=== PATIENT | male | born 1990 ===

== ENCOUNTER 2017-11-26 07:30 | Inpatient (IN) | payer OTHER ==
[2017-11-12 09:25] VITALS: BMI 38.6
[2017-12-23] MEDS ORDERED: Propofol 10 mg/ml 1,000 MG/100 ML VIAL ONE ×2 (07:07→07:36)
[2017-12-23] MEDS ORDERED: Lidocaine Hydrochloride 0 ML INJ ONE ×2 (07:27→07:41)
[2017-12-23] MEDS ORDERED: Midazolam 2 MG/2 ML VIAL ONE (07:27)
[2017-12-23] MEDS ORDERED: Succinylcholine Chloride 20 mg/ml Syr (5 ml) IV ONE (07:27)
[2017-12-23] MEDS ORDERED: Propofol 10 mg/ml Inj (20 ML) ONE ×2 (07:27→07:53)
[2017-12-23] MEDS ORDERED: Lidocaine 4% (Laryng-O-Jet) Kit MM ONE (07:28)
[2017-12-23] MEDS ORDERED: Bupivacaine Liposomal Inj 20 ml INJ ONE (07:30)
[2017-12-23] MEDS ORDERED: ceFAZolin IV 1 gm in Dextrose 1 GM/50 ML BAG IVPB ONE ×2 (07:39→08:15)
[2017-12-23] MEDS ORDERED: Bacitracin Ointment 30 GM TUBE ONE (07:42)
[2017-12-23] MEDS ORDERED: Absorbable Gelatin Sponge Size 12-7 ONE (07:43)
[2017-12-23] MEDS ORDERED: Absorbable Gelatin Sponge Size 100 ONE (07:43)
[2017-12-23] MEDS ORDERED: Thrombin Topical 20,000 Intl Units Spray Kit TOP ONE (07:44)
[2017-12-23] MEDS ORDERED: Thrombin Topical 5,000 Int Units Spray Kit ONE ×2 (07:48→07:56)
[2017-12-23] MEDS ORDERED: ePHEDrine 50 mg/ml Inj ONE (07:53)
[2017-12-23] MEDS ORDERED: Phenylephrine 10 mg/ml Inj ONE (07:53)
[2017-12-23] MEDS ORDERED: Sodium Chloride 0.9% 40 ML IV ONE (07:56)
[2017-12-23] MEDS ORDERED: Bacitracin 50,000 UNIT in Sodium Chloride 0.9% Irrig 1,000 ML IR SCH (08:00)
[2017-12-23] MEDS ORDERED: Rocuronium 10 mg/ml (5 ml) ONE (08:32)
[2017-12-23] MEDS ORDERED: Sodium Chloride 0.9% 20 ML IV ONE (09:03)
[2017-12-23] MEDS ORDERED: Lidocaine/Epinephrine 1% 1:100000 10 ML IJ ONE (09:03)
[2017-12-23] MEDS ORDERED: Neostigmine Methylsulfate 3mg/3ml Syringe IV ONE (12:06)
[2017-12-23] MEDS: HYDROmorphone 0.5 mg/0.5 ml ISec IVP PRN ×4 (12:31→13:05)
[2017-12-23] MEDS ORDERED: Oxycodone/Acetaminophen 5/325 mg Tab PO ONE (15:15)
--- NOTE | 2017-12-23 15:28 | RAD ---
PROCEDURE: HISTORY: As Above COMPARISON: None TECHNIQUE: Total fluoroscopic time utilized during the procedure: 47.6 seconds. Total dose 47.66 mGy cm squared FINDINGS: Submitted images from the current procedure: 15 Please refer to the physician's notes performing the procedure. IMPRESSION: Less than 1 hour fluoroscopic time utilized during performance of the procedure
[2017-12-23] MEDS ORDERED: HYDROmorphone 0.5 mg/0.5 ml ISec IVP ONE (16:20)
[2017-12-23] MEDS: oxyCODONE 20 mg ER Tab (oxyCONTIN) PO SCH (19:45)
[2017-12-23] MEDS: Potassium Ch 20mEq in D5-1/2NS 1,000 ML IV SCH (23:15)
[2017-12-23] MEDS: Oxycodone/Acetaminophen 5/325 mg Tab PO PRN (23:44)
[2017-12-24] MEDS: Oxycodone/Acetaminophen 5/325 mg Tab PO PRN ×5 (03:23→22:13)
--- NOTE | 2017-12-24 07:37 | OP ---
Copied To: Darwin Brown MD Attending MD: Darwin Brown MD PROCEDURE DATE: 12/23/2017 PREOPERATIVE DIAGNOSIS: Lumbar disk derangement with chronic low back pain radiculopathy. POSTOPERATIVE DIAGNOSIS: Lumbar disk derangement with chronic low back pain radiculopathy. PROCEDURE: L5-S1 decompression discectomy interbody fusion, segmental pedicle screw fixation and posterolateral fusion of the iliac autograft. SURGEON: Darwin Brown MD CO-SURGEON: Jignesh Arnett MD. ANESTHESIA: General endotracheal. ESTIMATED BLOOD LOSS: 375 mL, 125 mL returned via Cell Saver. COMPLICATIONS: None. JUSTIFICATION: The patient is status post an accident suffering with severe low back pain with associated radiculopathy, failed rather extensive conservative treatment. MRI documented significant collapse and herniation of the L5-S1 disc. All cephalad disks were relatively within normal limits. The patient was offered operative intervention by discectomy fixation and fusion. The nature of this procedure, alternatives, the rational behind it, details of the procedure itself, potential risks and complications, realistic chance of success, recovery time, rodent exterminator outlook were all discussed with him at length. All his questions were answered. He fully understood all the above and elected to proceed as offered. DESCRIPTION OF PROCEDURE: The patient was taken to the operating room. He was hooked up to neurophysiological monitoring. Intubated and anesthetized. He was placed on a Tono frame in a prone position. Care was taken to protect his face, eyes, endotracheal tube, and all bony prominences. The entire low back was then scrubbed with acetone, and scrubbed, painted, and draped in usual sterile manner. Incision was localized with lateral fluoroscopy and traced out from the spinous process from L4 down to the upper sacrum. This was infiltrated with local anesthetic. Incision was made with 10-blade knife, carried down to the level of the fascia. The Bovie cautery was use to strip the paraspinal muscles off the spinous processes and lamina of L5-S1. Confirmatory x-ray was taken. The exposure was widened out laterally and bilaterally with the Bovie and Myles elevators to expose the transverse processes at L5 and sacral ala bilaterally. Bleeding controlled throughout with the Bovie cautery and thrombinated Gelfoam. At this point, we performed bone harvestation. A 5-gauge trocar was inserted directly into the right superior posterior iliac crest, approximately 90 mL of bone marrow aspirated. This was then spun down to obtain the bone marrow mesenchymal cells, later used in the grafting. At this point, we began the decompression by removing the spinous processes of S1 and the inferior spinous processes of L5. Leksell and high speed drill were used to thin down these elements to begin a medial facetectomy. Various sized Kerrison rongeurs were then used to perform to complete the central laminotomy, and the medial facetectomy, we exposed the lateral disc, and the traversing one root bilaterally. Foraminotomy was performed bilaterally at the exiting L5 nerve root. Bleeding control throughout this point with bipolar cautery and thrombinated Gelfoam. At this point, the left S1 nerve root gently retracted medially. Disk was then incised. It was quite collapsed. We used an 8 mm shaver to open up the disk space, and then two pituitary rongeurs to remove the disk material. We were only able to use up to a 10 mm scraper because of the severe collapse of the disk. We did check an x-ray with 10 distractor and placed before using the 10 mm scraper, and we certainly chose not to proceed further than 10 mm. At this point, we used various size and shape curettes to remove all further soft tissue and disk material from the disk space, and perform the decortication of the endplates above and below. This identical procedure was then performed on the right side, after which the disc space was tacked with bone grafting material, which included chopped up products of decompression, additional allografts as well as mesenchymal cell impregnated collagen hydroxyapatite sponges. Following this, we placed a 10 x 9 mm carbon fiber fusion cage, tapped into the interspace until it is well-seated and countersunk. This was confirmed visually and fluoroscopically. We then performed the identical fusion on the left side and confirmed that back graft was also well seated and countersunk. At this point, we used high speed drills to decorticate lateral gutters, which included transverse process, lateral pars, facet, lateral facet, and the sacral ala. We then performed the placement of the pedicular screws. Using contralateral fluoroscopy, we identified the pedicular entrance, both visually and fluoroscopically, drilled the cortical surface, passed a gear shift down the barrel of the pedicle, and then placed the appropriate sized screw. Additionally, the gear shift, and the screws were all stimulated with the electrical current while monitoring lower extremity EMG. No screw elicited any EMG activity below a threshold of 20 milliamps. Using the technique, 6 diameter screws were placed bilaterally at L5 at 40 and 60 mm length, and at S1, 7 mm diameter screws were placed at 40 mm length. Both lateral and AP fluoroscopy confirmed excellent position of all four screws. We then placed the appropriate length titanium rods into the two screw head receptacles on each side. We then placed locking nuts and torque-wrenched tight, and lastly, placed a cross connector and points as well. Final AP and lateral x-ray confirmed super position of the entire construct. At this point, we tacked all bone grafts liberally into the lateral gutters as described previously. All further bone grafting material was used and packed to achieve the posterolateral fusion. We then ensured, there was no bone graft or any other foreign matter in the epidural or peridural space. This was gently irrigated with antibiotic solution and two layers of Gelfoam placed in the posterior epidural space. At this point, the retractors were removed. The muscle were re-approximated using 0 Vicryl. The fascia was closed using a tight interrupted 0 Vicryl stitch. The wound again copiously irrigated with antibiotic solution. Paraspinal muscles were infiltrated with a long lasting local anesthetic. The subcu closed in two separate layers with interrupted inverted 2-0 Vicryl. Skin closed with running Monocryl stitch, benzoin, and Steri-Strips. The dressing was applied. The patient was turned back on to a bed in a supine position, easily extubated. He was noted to be moving his lower extremities well on his way to recovery room. All counts were correct. Neurophysiological monitoring with the exception couple of small bursts of EMG activity while retracting the nerve route was stable. There were no complications. Counts were correct. Darwin Brown MD
--- NOTE | 2017-12-24 07:38 | HP ---
The patient is going to be admitted for surgery on 12/23/2017. HISTORY OF PRESENT ILLNESS: The patient is a 27-year-old gentleman injured severe on a job accident that occurred on 08/22/2014, i.e., over three years ago. 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 He began to develop severe back pain after this accident. He injured his knee and had surgery as well. He was treated extensive physiotherapy over several years. He has what he believes three or four injections, which each one helped him approximately three days. He had some type of percutaneous procedure performed, which helped him for approximately a week and then . He is suffering a severe pain in the low lumbar area. The pain radiates into both buttocks and down both posterior thighs into his calves and heels. It is worse on the right side. His overall level of pain is 8 on a 0 to 10 scale. He takes several Percocet a day. He has dysesthesias in the right leg as well. He has been unable to return to work. PAST MEDICAL HISTORY: Otherwise, negative. ALLERGIES: DENIES ANY ALLERGIES TO MEDICATIONS. SOCIAL HISTORY: He smokes two or three cigarettes a day. He did not drink. PHYSICAL EXAMINATION: NEUROLOGIC: He has 5/5 strength throughout. Sensory exam is within normal limits. Reflexes are 1+ in the left knee, absent in the right; absent in the right ankle, 1+ in the left ankle. Straight leg raising on the right, produces pain in the posterior side, approximately 35 degrees. He has a fair amount of lumbosacral junction. Range of motion is limited to extension, and markedly limited to flexion which is quite painful. DIAGNOSTIC STUDIES: MRI of the LS spine documenting markedly collapsed disks and prolapsed disk in the L5-S1. It is probably half the typical height. He has a large central herniation directly into the thecal sac with some extension towards the right abutting the S1 nerve root. There was bilateral foraminal stenosis. IMPRESSION AND PLAN: The patient is suffering with an ongoing diskogenic low back pain syndrome, which is associated by S1 radiculopathy, failed rather extensive conservative treatment over three year period, and he was offered the possibility of operative intervention by diskectomy, interbody fusion, and segmental fixation. The nature of this procedure, the rationale behind it, alternatives, potential risks, complications, realistic chance of success and recovery time were discussed with him at length. All his questions were answered. He fully understood all the above and he elected to proceed as offered. He is now being admitted for this procedure. Darwin Brown MD
[2017-12-24] MEDS: Potassium Ch 20mEq in D5-1/2NS 1,000 ML IV SCH ×3 (09:13→20:31)
[2017-12-24] MEDS: oxyCODONE 20 mg ER Tab (oxyCONTIN) PO SCH ×2 (10:26→21:29)
[2017-12-24] MEDS ORDERED: oxyCODONE 20 mg ER Tab (oxyCONTIN) PO ONE (11:03)
--- NOTE | 2017-12-24 11:10 | CP.PCM.PN ---
Subjective - Date & Time of Evaluation Date of Evaluation: 12/24/17 Time of Evaluation: 11:09 - Subjective Subjective: pod1 pt c/o sever back pain needs inc in pain meds reports nmbness in both legs entire legs exam finds 5/5 with no sensory deficts to pin will inc narcotics and attempt adv act Objective - Vital Signs/Intake and Output Vital Signs (last 24 hours): Temp Pulse Resp BP Pulse Ox 98.5 F 90 20 135/68 96 12/24/17 07:25 12/24/17 07:25 12/24/17 07:25 12/24/17 07:25 12/24/17 07:25 Intake and Output: 12/24/17 12/24/17 06:59 18:59 Intake Total 1250 Output Total 2125 Balance -875 - Medications Medications: Current Medications Acetaminophen (Tylenol 325mg Tab) 650 mg PO Q6 PRN PRN Reason: Fever >100.4 F Last Admin: 12/24/17 04:31 Dose: 650 mg Docusate Sodium (Colace) 100 mg PO BID [facility] [place] Last Admin: 12/24/17 10:26 Dose: 100 mg Potassium Chloride/Dextrose/Sod Cl (Potassium Chl 20 Meq In D5-1/2ns) 1,000 mls @ 100 mls/hr IV .Q10H [facility] [place] Last Admin: 12/24/17 09:13 Dose: Not Given Ondansetron HCl (Zofran Tab) 4 mg PO Q6 PRN PRN Reason: Nausea/Vomiting Oxycodone HCl (Oxycontin Extended Release Tab) 20 mg PO Q12 [facility] [place] Last Admin: 12/24/17 10:26 Dose: 20 mg Oxycodone HCl (Oxycontin Extended Release Tab) 40 mg PO Q12 [facility] [place] Oxycodone/Acetaminophen (Percocet 5/325 Mg Tab) 1 tab PO Q4H PRN PRN Reason: Pain, moderate (4-7) Stop: 12/26/17 23:01 Last Admin: 12/24/17 07:59 Dose: 1 tab Pneumococcal Polyvalent Vaccine (Pneumovax 23 Vaccine) 0.5 ml IM .ONCE ONE Stop: 12/25/17 12:01
--- NOTE | 2017-12-24 20:43 | OP ---
Copied To: Jignesh Arnett MD Attending MD: Jignesh Arnett MD PROCEDURE DATE: 12/23/2017 PREOPERATIVE DIAGNOSES: Central herniation with disk derangement, L5-S1. POSTOPERATIVE DIAGNOSES: Central herniation with disk derangement, L5-S1. OPERATIONS: 1. Posterior lumbar interbody and lateral fusion, L5-S1. 2. Use of intervertebral devices. 3. Use of non-segmental spinal instrumentation. 4. Use of autograft by means of bone marrow aspiration. SURGEON: Jignesh Arnett MD AND Darwin Brown MD ANESTHESIA General endotracheal tube intubation. DESCRIPTION OF PROCEDURE: The patient was brought into the operating room. General anesthesia was achieved. Intravenous antibiotics were administered and spinal cord monitor leads were placed throughout the patient's body. Real time monitoring was done by refrigeration service technician in the room. Remote monitoring was done by physician as well. Sequential compression boots were placed to use the patient's legs. After the antibiotics were administered, a Byrne catheter was inserted. The patient was then placed on the operating table in the prone position on a Tono frame keeping his abdomen free from pressure anteriorly. Care was taken to protect his elbows and knees from pressure points. A Steri-Drape was used to seal off the patient's perineal region from the operative field and his back was sterilely prepped and draped. The level of the incision was noted under fluoroscopy and infiltrated with lidocaine with epinephrine. An incision was made in the midline and taken down through subcutaneous tissue using sharp and blunt dissection. Hemostasis was achieved using electrocautery. The fascia was divided, stripped laterally off the spinous processes and lamina out to the level of the L5 transverse process on each side as well as sacral ala on each side. Fluoroscopic views confirmed with the appropriate level. Soft tissue attachments were cleared from the bony landmarks using electrocautery and Myles elevators. A Leksell rongeur was used to remove the spinous processes and thinned down to lamina and laminectomy carried out in a caudocephalad fashion using Kerrison rongeurs. This was done in the midline first and then out laterally to each side until we could easily pass the broach at the level of the disk space, indicative of enough space to subsequently pass the cages. Foraminotomies were carried out until we could easily pass a Potter tool out each neural foramina above and below on each side. Hemostasis achieved with bipolar cautery as well as thrombinated Gelfoam powder. At that time, a trocar was placed in the posterior right ilium and 90 mL of bone marrow aspirate was obtained. This was sterilely passed off to the refrigeration service technician to process it through the harvest system and return the collected mesenchymal stem cells back to the OR table. The stem cells were used to soak strips and cubes of Conform hydroxyapatite sponge as well as process through the IC chamber. The IC chamber bone along with the patient's laminar bone and Optium putty were combined to make a good bone grafting substrate. The thrombinated Gelfoam powder was used to hemostasis at the donor site. The thecal sac was gently retracted and the annulus incised on left side L5-S1. It was difficult entering the disk space due to the significant collapse and osteophyte formation. A pituitary rongeur and endplate soy up to and including a size 10 were used to remove the disk material from within the disk space. A ring and spoon curettes were then used to remove any remaining tissue from the endplates. We then moved to the right side where again the thecal sac was retracted and the annulus was incised and any remaining disk material was removed with the endplate soy up to and including a size 10 along with the pituitary rongeur, the ring and spoon curettes. The bone grafting substrate was then packed into the disk space along with the marrow soaked cubes. A 9 x 10 cage packed with the graft was then tamped into place and countersunk. We moved back to the left side and removed any remaining disk material that appeared to have been heaped up dorsally. More bone grafting substrate and marrow soak cubes were packed in the disk space and another 9 x 10 cage packed with graft was tamped into place and countersunk. Visually, they appeared to be in good position. Baseline stimulation of the nerve roots was done and the system was working and we confirmed laterality as well. A high-speed drill was used to decorticate the L5-S1 facet joints on each side along with the sacral ala and the transverse processes of L5 on each side as well. Under fluoroscopic guidance, the entry point for the right L5 pedicle was noted. Gearshift 2 was used to create a channel through the pedicle and the bony integrity confirmed with a ball-tip probe. A 6 x 50 mm Expedient screw was then inserted. In similar fashion on the left side, a high-speed drill was used to create the entry point and the gearshift 2 was used to create a channel for the screw. Once the ball-tip probe confirmed bony integrity throughout, a 40 mm x 6 screw was inserted. Stimulation of the gearshift 2 on each side as well as the shank on top of each screw revealed no electrophysiologic abnormalities. We then moved down the sacral level where again under fluoroscopic guidance, the entry point on each side was noted and marked with the high-speed drill. The gearshift 2 was used to create the particular channel on each side and the ball-tip probe used to confirm bony integrity. A 7 x 40 mm Expedient screw was inserted on each side and again stimulation of the tool on each side as well as each screw revealed no abnormalities. AP views were taken which confirmed good position of the screws as well. A 45-mm precut lordotic rods were then used to connect each pair of screws and the caps applied, tightened, and torqued. The midline was inspected for any debris and irrigated. Hemostasis achieved with thrombinated Gelfoam powder and a large piece of solid Gelfoam was used to cover the exposed neural elements. A #7 Matrix cross-link was then applied to the 2 rods to add rotational stability. The remaining marrow soaks strips of Conform along with the remaining bone grafting substrate was then packed laterally to bridge the decorticated transverse processes of sacral ala as well as into the decorticated facet joint. Final AP and lateral fluoroscopic view showed excellent position of the hardware. The wound was then closed in layers with interrupted sutures of 0 Vicryl for the muscle and fascia. The subcutaneous tissue was copiously irrigated with antibiotic solution. 20 mL of Exparel diluted with normal saline as well as 20 mL of 0.5% Marcaine were injected in the paraspinal tissues to help with postoperative pain relief. The subcutaneous tissue was closed using interrupted sutures of 2-0 Vicryl and the skin was approximated with running subcuticular suture of 3-0 Monocryl. Steri-Strips and sterile dressing were applied. The patient was then gently transferred back onto his bed in the supine position. He was awakened and extubated. He was taken to recovery room in stable condition, having tolerated the procedure well. Estimated blood loss was 400 mL. He received 2 liters of crystalloid during the operation and 125 mL back from the Cell Saver. He was actually moving all extremities at time of his transfer and no permanent electrophysiologic abnormalities were noted at the completion of the case. Jignesh Arnett MD
[2017-12-25] MEDS: oxyCODONE 20 mg ER Tab (oxyCONTIN) PO SCH ×5 (00:48→22:03)
[2017-12-25] MEDS: Potassium Ch 20mEq in D5-1/2NS 1,000 ML IV SCH (00:51)
--- NOTE | 2017-12-25 10:31 | CP.PCM.PN ---
Subjective - Date & Time of Evaluation Date of Evaluation: 12/25/17 Time of Evaluation: 10:30 - Subjective Subjective: c/o incisional pain no motor sensory deficts sttod yesterday need to ambulate today Objective - Vital Signs/Intake and Output Vital Signs (last 24 hours): Temp Pulse Resp BP Pulse Ox 101.8 F H 98 H 20 113/72 99 12/25/17 07:35 12/25/17 07:35 12/25/17 07:35 12/25/17 07:35 12/25/17 07:35 Intake and Output: 12/25/17 12/25/17 06:59 18:59 Intake Total 1200 Output Total 350 Balance 850 - Medications Medications: Current Medications Acetaminophen (Tylenol 325mg Tab) 650 mg PO Q6 PRN PRN Reason: Fever >100.4 F Last Admin: 12/24/17 04:31 Dose: 650 mg Docusate Sodium (Colace) 100 mg PO BID [facility] Last Admin: 12/24/17 20:34 Dose: 100 mg Potassium Chloride/Dextrose/Sod Cl (Potassium Chl 20 Meq In D5-1/2ns) 1,000 mls @ 100 mls/hr IV .Q10H [facility] Last Admin: 12/25/17 00:51 Dose: 100 mls/hr Ondansetron HCl (Zofran Tab) 4 mg PO Q6 PRN PRN Reason: Nausea/Vomiting Oxycodone HCl (Oxycontin Extended Release Tab) 20 mg PO Q12 [facility] Last Admin: 12/24/17 21:29 Dose: 20 mg Oxycodone HCl (Oxycontin Extended Release Tab) 40 mg PO Q12 [facility] Last Admin: 12/25/17 00:48 Dose: 40 mg Oxycodone/Acetaminophen (Percocet 5/325 Mg Tab) 1 tab PO Q4H PRN PRN Reason: Pain, moderate (4-7) Stop: 12/26/17 23:01 Last Admin: 12/24/17 22:13 Dose: 1 tab Pneumococcal Polyvalent Vaccine (Pneumovax 23 Vaccine) 0.5 ml IM .ONCE ONE Stop: 12/25/17 12:01
[2017-12-25] MEDS ORDERED: Pneumococcal 23-Valent Vaccine IM ONE (12:00)
[2017-12-25] MEDS: Oxycodone/Acetaminophen 5/325 mg Tab PO PRN ×3 (14:13→22:24)
[2017-12-26] MEDS: Oxycodone/Acetaminophen 5/325 mg Tab PO PRN ×4 (02:29→16:15)
[2017-12-26] MEDS: oxyCODONE 20 mg ER Tab (oxyCONTIN) PO SCH (09:30)
--- NOTE | 2017-12-26 14:17 | CP.PCM.PN ---
Subjective - Date & Time of Evaluation Date of Evaluation: 12/26/17 Time of Evaluation: 14:15 - Subjective Subjective: SPINE - POD #3 Pt OOB in chair. Amb 150' w RW today in therapy. Lives in elevator apt. Would like to go home. VSS. Temp 99. Neuro grossly intact. Dressing clean and dry. Plan: d/c to home. Call office for f/u appt. Objective - Vital Signs/Intake and Output Vital Signs (last 24 hours): Temp Pulse Resp BP Pulse Ox 99.8 F H 85 18 116/69 97 12/26/17 07:30 12/26/17 07:30 12/26/17 07:30 12/26/17 07:30 12/26/17 07:30 Intake and Output: 12/26/17 12/26/17 06:59 18:59 Output Total 1000 Balance -1000 - Medications Medications: Current Medications Acetaminophen (Tylenol 325mg Tab) 650 mg PO Q6 PRN PRN Reason: Fever >100.4 F Last Admin: 12/26/17 07:15 Dose: 650 mg Docusate Sodium (Colace) 100 mg PO BID [facility] Last Admin: 12/26/17 09:29 Dose: 100 mg Ondansetron HCl (Zofran Tab) 4 mg PO Q6 PRN PRN Reason: Nausea/Vomiting Last Admin: 12/26/17 11:52 Dose: 4 mg Oxycodone HCl (Oxycontin Extended Release Tab) 40 mg PO Q12 [facility] Last Admin: 12/26/17 09:30 Dose: 40 mg Oxycodone/Acetaminophen (Percocet 5/325 Mg Tab) 1 tab PO Q4H PRN PRN Reason: Pain, moderate (4-7) Stop: 12/26/17 23:01 Last Admin: 12/26/17 11:51 Dose: 1 tab
[2017-12-26 16:31] VITALS: BP 130/81; PULSE 72; RESP 20; TEMP 98.2; O2SAT 98
== END 2017-12-26 18:41 | disposition home or self-care (01) | DRG 460 ==
LOC: C.9S 12-23 05:58 → C.6T 12-23 13:37
PROVIDERS: ADMIT Neurological Surgery; ATTEND Neurological Surgery
PROC: 0SB40ZZ Excision of Lumbosacral Disc, Open Approach (ICD-10-PCS; 2017-12-23)
PROC: 0QB20ZZ Excision of Right Pelvic Bone, Open Approach (ICD-10-PCS; 2017-12-23)
PROC: 07DR3ZZ Extraction of Iliac Bone Marrow, Percutaneous Approach (ICD-10-PCS; 2017-12-23)
PROC: 0SG30AJ Fusion of Lumbosacral Joint with Interbody Fusion Device, Posterior Approach, Anterior Column, Open Approach (ICD-10-PCS; principal; 2017-12-23 07:45)
DX: M51.27 Other intervertebral disc displacement, lumbosacral region (principal); M54.18 Radiculopathy, sacral and sacrococcygeal region; F17.200 Nicotine dependence, unspecified, uncomplicated; G89.29 Other chronic pain